=== PATIENT | male | born 1965 | race African-American/Black ===

== ENCOUNTER 2017-09-26 09:45 | Emergency (ER) | payer SELFPAY ==
[2017-09-26] MEDS ORDERED: Lidocaine 1% PF 5 ML VIAL ONE (10:30)
[2017-09-26] MEDS ORDERED: Azithromycin 250 MG TAB ONE (10:30)
[2017-09-26] MEDS ORDERED: Ketorolac Tromethamine 30 MG/ML VIAL ONE (10:30)
[2017-09-26] MEDS ORDERED: cefTRIAXone\\ROCEPHIN 250 MG VIAL ONE (10:30)
[2017-09-26 10:47] LABS: Bilirubin Negative (Negative); Blood, Urine Negative (Negative); Clarity CLEAR (Clear); Glucose, Urine (Dipstick) >=1000 mg/dL (Negative); Leukocyte Negative (Negative); Nitrite Negative (Negative); Protein, Urine (Dipstick) Negative (Neg-Trace); Specific Gravity, Urine 1.037 (1.002-1.036); Urobilinogen 0.2 mg/dL (0.2-1.0)
[2017-09-28 22:40] LABS: Chlamydia by PCR Not Detected (NotDetected); GC by PCR Not Detected (NotDetected)
== END 2017-09-26 11:40 | disposition home or self-care (01) ==
LOC: ERS 09:45
DX: Z20.2 Contact with and (suspected) exposure to infections with a predominantly sexual mode of transmission (principal); R30.0 Dysuria; M25.551 Pain in right hip; E11.9 Type 2 diabetes mellitus without complications; I10 Essential (primary) hypertension
CPT/HCPCS: 81003; 87491; 87591; 96372; J0696; J1885; J2001

== ENCOUNTER 2017-10-12 17:32 | Emergency (ER) | payer SELFPAY ==
[2017-10-12 19:03] LABS: Bilirubin Negative (Negative); Blood, Urine Negative (Negative); Clarity CLEAR (Clear); Glucose, Urine (Dipstick) >=1000 mg/dL (Negative); Leukocyte Negative (Negative); Nitrite Negative (Negative); Protein, Urine (Dipstick) Negative (Neg-Trace); Specific Gravity, Urine 1.036 (1.002-1.036); Urobilinogen 0.2 mg/dL (0.2-1.0); pH, Urine 5.5 (5.0-9.0)
[2017-10-12 20:01] LABS: Hemoglobin 15.9 g/dL (14.0-18.0); Mean Corpuscular HGB CONC 35.9 g/dL (32.0-36.0); Mean Corpuscular Hemoglobin 30.5 pg (27.0-31.0); Mean Corpuscular Volume 84.9 fL (78.0-98.0); Mean Platelet Volume 7.5 fL (7.4-10.4); Platelet Count 295 thou/uL (130-400); RBC Distribution Width 11.7 % (11.5-14.5); Red Blood Cell (RBC) Count 5.23 mill/uL (4.70-6.10); White Blood Cell (WBC) Count 5.4 thou/uL (4.8-10.8)
[2017-10-12 20:20] LABS: Band 1 % (5-11); Eosinophils 3 % (0-10); Lymphocytes 54 % (21-51); MDiff Complete? YES; Monocytes 1 % (0-10); Neutrophil 39 % (42-75); PLT Morphology Comment Appears Adequate; RBC Morphology Normal; Reactive Lymphocytes 2 % (0-10)
[2017-10-12 20:21] LABS: ALT (SGPT) 36 U/L (8-55); AST (SGOT) 27 U/L (5-34); Albumin 4.6 g/dL (3.5-5.0); Alkaline Phosphatase 145 U/L (40-150); Anion Gap 15 mmol/L (10-20); BUN (Urea Nitrogen) 13 mg/dL (8.4-25.7); Calc. Creatinine Clearance 0 mL/min (70-130); Calcium 9.4 mg/dL (7.8-10.44); Carbon Dioxide 22 mmol/L (22-29); Chloride 96 mmol/L (98-107); Estimated GFR-MDRD 53; Globulin 3.6 g/dL (2.4-3.5); Potassium 3.6 mmol/L (3.5-5.1); Protein, Total 8.2 g/dL (6.0-8.3)
[2017-10-12 20:27] LABS: Glucose 584 mg/dL (70-105); Sodium 129 mmol/L (136-145)
[2017-10-12 20:29] LABS: Base Excess-Venous 1.6 mmol/L (0 (+/- 2.5)); Bicarbonate (HCO3v) 24.9 mmol/L (1.0-85.0); CO2 Tension (PvCO2) 34.3 mmHg (41.0-51.0); Calcium, Ionized 0.99 mmol/L (1.12-1.32); Hemoglobin - Calc 15.2 g/dL (12.0-18.0); O2 Tension (PvO2) 42.4 mmHg (35.0-45.0); Potassium 3.8 mmol/L (3.4-4.7); T. Carbon Dioxide 25.9 mmol/L (1.0-85.0); pH (Venous) 7.468 (7.35-7.45); vO2 Saturation-calc 81.4 % (94-98)
== END 2017-10-12 22:31 | disposition home or self-care (01) ==
LOC: ERS 17:32
DX: E11.65 Type 2 diabetes mellitus with hyperglycemia (principal); N48.1 Balanitis; E11.9 Type 2 diabetes mellitus without complications; I10 Essential (primary) hypertension
CPT/HCPCS: 36415; 36416; 80053; 81003; 82330; 82803; 85025; 96360; 96361

== ENCOUNTER 2018-12-24 11:19 | Emergency (ER) | payer SELFPAY ==
[2018-12-24] MEDS ORDERED: Cyclobenzaprine 10 MG TAB ONE (11:44)
--- NOTE | 2018-12-24 13:30 | CT ---
CT LUMBAR SPINE WITHOUT CONTRAST: CT PELVIS WITHOUT CONTRAST: HISTORY: Fall. Low back pain. FINDINGS: There are postop changes of posterior spinal fusion with bilateral pedicle screws at the L4 and L5 le vels, in good position and alignment. There is large bridging heterotopic bone from L2 to S1 on the l eft and at the L4-L5 level on the right. No acute fracture or subluxation is seen in the lumbar spine . There are degenerative changes in the SI joints bilaterally. No fracture or dislocation is seen in th e pelvis or hips on either side. IMPRESSION: No acute process. POS: [facility]
== END 2018-12-24 13:40 | disposition home or self-care (01) ==
LOC: ERS 11:19
DX: S39.012A Strain of muscle, fascia and tendon of lower back, initial encounter (principal); M25.552 Pain in left hip; E11.9 Type 2 diabetes mellitus without complications; I10 Essential (primary) hypertension; Z79.899 Other long term (current) drug therapy; Z79.84 Long term (current) use of oral hypoglycemic drugs; W18.30XA Fall on same level, unspecified, initial encounter
CPT/HCPCS: 72131; 72192

== ENCOUNTER 2019-05-10 07:56 | Outpatient (CLI) | payer OTHER ==
--- NOTE | 2019-05-10 10:42 | MRI ---
MR the lumbar spine with and without contrast: 05/10/2019 History: Chronic back pain with left lower extremity radiculopathy, history of back surgery COMPARISON: None. TECHNIQUE: Multiplanar multisequence MR images were obtained of lumbar spine with and without IV cont rast FINDINGS: On the basis of 5 lumbar type vertebral bodies, conus medullaris terminates at theL1 level. Posterior fusion hardware at the L4-5 level noted. Associated hardware artifact limits assessment of the central canal and neural foramina at L4-5 and L5-S1. Sagittal STIR imaging demonstrates no focal area of osseous marrow edema. T12-L1:Intervertebral disc height and signal intensity is within normal limits. Mild bilateral facet hypertrophy. No significant central canal or neural foraminal stenosis. L1-2:There is anterolisthesis at L1-2 measuring approximately 7 mm. There is disc space narrowing wit h disc desiccation. Prominent bilateral facet hypertrophy. There is mild/moderate right neural foraminal stenosis, severe central canal stenosis, and severe left neural foraminal stenosis. L2-3:Intervertebral disc height and signal intensity appears within normal limits. Mild bilateral fac et hypertrophy. No central canal or neural foraminal stenosis. L3-4:Intervertebral disc height and signal intensity appears grossly unremarkable. Mild bilateral fac et hypertrophy with mild bilateral neural foraminal stenosis. No significant central canal stenosis. L4-5:Intervertebral disc height and signal intensity is within normal limits. Bilateral facet hypertr ophy noted. No significant central canal stenosis. The patient appears status post bilateral laminectomy. Probable moderate left and mild right neural foraminal stenosis. Evaluation for neural f oraminal stenosis is limited on the basis of hardware artifact. L5-S1:Facet hypertrophy noted on the left with mild left neural foraminal stenosis. No significant ce ntral canal or right neural foraminal stenosis. Image retroperitoneal structures demonstrateno acute findings.. The postcontrast imaging demonstrates no abnormal enhancement involving the contents of the thecal sa c, the imaged osseous structures, or the intervertebral discs. IMPRESSION: Postoperative and degenerative changes as described above, most significant at the L1-2 level as deta iled above.
== END 2019-05-10 07:57 | disposition home or self-care (01) ==
LOC: SCSMRI 07:56
PROVIDERS: ATTEND Neurological Surgery
DX: M48.062 Spinal stenosis, lumbar region with neurogenic claudication (principal); M47.816 Spondylosis without myelopathy or radiculopathy, lumbar region; Z98.1 Arthrodesis status
CPT/HCPCS: 72158

== ENCOUNTER 2019-07-01 09:59 | Outpatient (CLI) | payer OTHER ==
--- NOTE | 2019-07-01 15:04 | MRI ---
MRI CERVICAL SPINE WITHOUT CONTRAST: 07/01/19 INDICATIONS: Spondylosis cervical spine. Chronic neck pain with radiation to both upper extremities. No comparison. FINDINGS: Cervical vertebral maintain height and alignment. Mild anterior wedging at C4, C5 and C6 appears size mixer hardy and degenerative. There are anterior osteophytes at these levels. The disc spaces are preserved. No evidence of vertebral body edema. At C2-3, mild disc bulge without cord impingement. No central canal stenosis. At C3-4, posterior disc osteophyte compresses the cord producing flattening of the cord. Bilateral fo raminal stenosis due to facet and uncinate hypertrophy. At C4-5, posterior disc bulge and spondylosis abuts and mildly flattens the anterior cord. Right fora dolly stenosis. At C5-6, posterior disc bulge and spondylosis abuts the mildly impinges on the anterior cord. Mild ri ght foraminal stenosis due to facet and uncinate hypertrophy. At C6-7, disc osteophyte complex centrally and to the left abuts the anterior cord on the left and a ppears to displace the traversing and exiting left nerve root at this level. At C7-T1, asymmetric disc osteophyte complex with uncinate hypertrophy on the right produces right fo raminal stenosis. No evidence of cord edema or myelomalacia. IMPRESSION: Disc bulge and spondylolytic changes at multiple levels produce cord impingement as described above. Cord compression is most pronounced at C3-4. See description at each level above. POS: [facility]
== END 2019-07-01 10:00 | disposition home or self-care (01) ==
LOC: SCSMRI 09:59
PROVIDERS: ATTEND Neurological Surgery
DX: M47.12 Other spondylosis with myelopathy, cervical region (principal); M50.01 Cervical disc disorder with myelopathy, high cervical region; M25.78 Osteophyte, vertebrae; M48.02 Spinal stenosis, cervical region; M89.38 Hypertrophy of bone, other site; M48.03 Spinal stenosis, cervicothoracic region
CPT/HCPCS: 72141

== ENCOUNTER 2019-07-08 06:08 | Outpatient (CLI) | payer OTHER ==
[2019-07-08 10:24] LABS: Hemoglobin 14.3 g/dL (14.0-18.0); Mean Corpuscular HGB CONC 33.5 g/dL (32.0-36.0); Mean Corpuscular Volume 89.3 fL (78.0-98.0); Platelet Count 348 thou/uL (130-400); RBC Distribution Width 11.9 % (11.5-14.5); Red Blood Cell (RBC) Count 4.76 mill/uL (4.70-6.10); White Blood Cell (WBC) Count 5.7 thou/uL (4.8-10.8)
[2019-07-08 10:54] LABS: Anion Gap 15 mmol/L (10-20); BUN (Urea Nitrogen) 16 mg/dL (8.4-25.7); Calc. Creatinine Clearance 0 mL/min (70-130); Calcium 9.3 mg/dL (7.8-10.44); Carbon Dioxide 24 mmol/L (22-29); Chloride 105 mmol/L (98-107); Estimated GFR-MDRD 79; Glucose 105 mg/dL (70-105); Potassium 3.5 mmol/L (3.5-5.1); Sodium 140 mmol/L (136-145)
[2019-07-08 18:20] LABS: SARS-CoV-2 MS2 Positive; SARS-CoV-2 N Gene Negative; SARS-CoV-2 S Gene Negative; SARS-CoV-2 orf1ab Negative
--- NOTE | 2019-07-10 16:35 | EKG ---
Test Reason : Blood Pressure : / mmHG Vent. Rate : 091 BPM Atrial Rate : 091 BPM P-R Int : 144 ms QRS Dur : 092 ms QT Int : 376 ms P-R-T Axes : 064 048 -22 degrees QTc Int : 462 ms Normal sinus rhythm T wave abnormality, consider inferior ischemia Prolonged QT Abnormal ECG No previous ECGs available Confirmed by SHERI BARRETO ([id number]) on 07/10/2019 4:34:49 PM Referred By: ABDOULAYE Confirmed By:SHERI BARRETO
== END 2019-07-08 06:09 | disposition home or self-care (01) ==
LOC: LABBT 06:08
PROVIDERS: ATTEND Neurological Surgery
DX: Z01.818 Encounter for other preprocedural examination (principal); Z11.59 Encounter for screening for other viral diseases; M48.062 Spinal stenosis, lumbar region with neurogenic claudication
CPT/HCPCS: 80048; 85027; 87635; 93005; 93010; U0003

== ENCOUNTER 2019-07-13 06:33 | Day surgery (SDC) | payer OTHER ==
[2019-07-08 09:32] VITALS: BMI 37.3
[2019-07-13] MEDS ORDERED: Fentanyl 100 MCG/2 ML VIAL ONE ×5 (09:50→13:23)
[2019-07-13] MEDS ORDERED: SUGAMMADEX SODIUM 200 MG/2 ML VIAL ONE ×2 (11:18→11:37)
[2019-07-13] MEDS ORDERED: Ondansetron PF 4 MG/2 ML Vial ONE (11:57)
[2019-07-13] MEDS ORDERED: Dexamethasone 20 MG/5 ML VIAL ONE (11:57)
[2019-07-13] MEDS ORDERED: PHENYLEPHRINE-NS 100 MCG/ML 10 ML SYRINGE ONE (11:57)
[2019-07-13] MEDS ORDERED: PROPOFOL 200 MG/20 ML VIAL ONE (11:57)
[2019-07-13] MEDS ORDERED: Lidocaine 1% PF 5 ML VIAL ONE (11:57)
[2019-07-13] MEDS ORDERED: Rocuronium Bromide 10 MG/ML (10ML VIAL) ONE (11:57)
--- NOTE | 2019-07-13 12:54 | OP ---
DATE OF PROCEDURE: 07/13/2019 AVIATION SAFETY EQUIPMENT TECHNICIAN: Frida Rosario PA-C PROCEDURE PERFORMED: Anterior cervical diskectomy C3-4, interbody arthrodesis, intervertebral biomechanical device, local morselized autograft, demineralized bone matrix, anterior titanium instrumentation C3-4. DESCRIPTION OF PROCEDURE: The patient was brought to the operating room and intubated. He was positioned supine with the head in modest extension on a gel-filled donut. An incision was made in the right precervical area and dissected medial to the sternocleidomastoid muscle, identified the anterior cervical spinal, and the level was confirmed by x-ray. We placed distraction across the C3-4, removed the intervertebral disk, and using operative microscope and microdissection techniques, completely decompressed the intervertebral discs down beneath the posterior longitudinal ligament to the level of the dura. A complete decompression of the spinal cord was achieved. An anterior plate was then brought into the field and secured at C3 and C4 using two 14-mm screws at each level. The wound was then extensively irrigated. MAC hemostasis was secured. The wound was closed in anatomic layers. Job ID: [id number]
[2019-07-13] MEDS ORDERED: Tamsulosin HCl 0.4 MG CAP ONE (13:54)
[2019-07-13] MEDS ORDERED: HYDROcodone/Acetaminophen 5/325 mg Tablet ONE (14:37)
== END 2019-07-13 15:45 | disposition home or self-care (01) ==
LOC: SDC 06:33
PROVIDERS: ATTEND Neurological Surgery
PROC: 0RT30ZZ Resection of Cervical Vertebral Disc, Open Approach (ICD-10-PCS; principal; 2019-07-13)
PROC: 0RG10A0 Fusion of Cervical Vertebral Joint with Interbody Fusion Device, Anterior Approach, Anterior Column, Open Approach (ICD-10-PCS; principal; 2019-07-13)
DX: M47.12 Other spondylosis with myelopathy, cervical region (principal); M48.02 Spinal stenosis, cervical region; E11.9 Type 2 diabetes mellitus without complications; I10 Essential (primary) hypertension; Z79.84 Long term (current) use of oral hypoglycemic drugs; Z79.899 Other long term (current) drug therapy
CPT/HCPCS: 76000; C1713; C1776; J0690; J1100; J2001; J2405; J2704; J3010

== ENCOUNTER 2019-08-01 08:56 | Emergency (ER) | payer OTHER ==
[2019-08-01] MEDS ORDERED: Iopamidol-370 76% 500 ML 1 ML ONE (09:47)
[2019-08-01 10:53] LABS: Bacteria/HPF None Seen HPF (None Seen); Bilirubin Negative (Negative); Blood, Urine Negative (Negative); Clarity Clear (Clear); Glucose, Urine (Dipstick) Normal (Negative); Leukocyte 250 Leu/uL (Negative); Nitrite Negative (Negative); Protein, Urine (Dipstick) 30 mg/dL (Neg-Trace); RBC/HPF 0-3 HPF (0-3); Squamous Epithelial 0-3 HPF (0-3)
[2019-08-01 11:42] LABS: #Basophils 0.1 thou/uL (0.0-0.2); #Eosinphils 0.1 thou/uL (0.0-0.7); #Lymphocytes 2.3 thou/uL (1.20-3.40); #Monocytes 1.2 thou/uL (0.11-0.59); #Neutrophils 10.2 thou/uL (1.40-6.50); %Basophils 0.4 % (0.0-1.0); %Eosinophils 0.7 % (0.0-10.0); %Lymphocytes 16.5 % (21.0-51.0); %Monocytes 8.5 % (0.0-10.0); %Neutrophils 73.8 % (42.0-75.0); Hemoglobin 13.8 g/dL (14.0-18.0); Mean Corpuscular HGB CONC 32.7 g/dL (32.0-36.0); Mean Corpuscular Hemoglobin 29.7 pg (27.0-31.0); Mean Corpuscular Volume 90.8 fL (78.0-98.0); Mean Platelet Volume 7.1 fL (7.4-10.4); Platelet Count 351 thou/uL (130-400); RBC Distribution Width 11.7 % (11.5-14.5); Red Blood Cell (RBC) Count 4.66 mill/uL (4.70-6.10); White Blood Cell (WBC) Count 13.8 thou/uL (4.8-10.8)
--- NOTE | 2019-08-01 11:52 | CT ---
CT ABDOMEN AND PELVIS WITH IV CONTRAST 08/01/2019 CLINICAL INFORMATION: Difficulty urinating for past 2 days. COMPARISON: None. Technique: Multiple contiguous axial CT images are obtained through the abdomen and pelvis with IV contrast. Cor onal reformatted images are provided. FINDINGS: Lower Chest: Dependent bibasilar atelectasis. Vessels: Abdominal aorta is normal in caliber without evidence of an aortic dissection. Abdomen: Portal vein:Patent Gallbladder: Surgically absent. Liver: within normal limits. Spleen: within normal limits. Pancreas: within normal limits. Adrenals: within normal limits. Kidneys: within normal limits. Bowel: Colonic diverticulosis involving the descending colon. Loops of small bowel are normal in audra priscila. Appendix: The appendix is visualized and normal in caliber. Peritoneum: No ascites or free air; no fluid collection. Mesentery and Retroperitoneum: No enlarged mesenteric or retroperitoneal lymph nodes. Abdominal Wall: Small fat-containing umbilical hernia. Pelvis: Reproductive Organs: No pelvic masses. Pelvis within normal limits. Bladder: Enriquez catheter in urinary bladder which is decompressed. Bones: Extensive postoperative changes lumbar spine IMPRESSION: 1. No acute findings are seen in the abdomen or pelvis. 2. Kidneys demonstrate a normal CT appearance bilaterally without evidence of a renal mass or hydrone phrosis. 3. Enriquez catheter is present in a decompressed urinary bladder. 4. Colonic diverticulosis.
[2019-08-01 11:56] LABS: Albumin 4.3 g/dL (3.5-5.0)
[2019-08-01 11:57] LABS: Chloride 98 mmol/L (98-107); Potassium 3.7 mmol/L (3.5-5.1); Sodium 137 mmol/L (136-145)
[2019-08-01 11:58] LABS: Calcium 9.6 mg/dL (7.8-10.44); Glucose 107 mg/dL (70-105)
[2019-08-01 11:59] LABS: Protein, Total 8.3 g/dL (6.0-8.3)
[2019-08-01 12:00] LABS: Anion Gap 14 mmol/L (10-20); Bilirubin, Total 1.6 mg/dL (0.2-1.2); Carbon Dioxide 29 mmol/L (22-29)
[2019-08-01 12:01] LABS: Alkaline Phosphatase 151 U/L (40-110)
[2019-08-01 12:02] LABS: Calc. Creatinine Clearance 0 mL/min (70-130); Estimated GFR-MDRD 78
[2019-08-01 12:03] LABS: BUN (Urea Nitrogen) 12 mg/dL (8.4-25.7)
[2019-08-01 12:04] LABS: ALT (SGPT) 149 U/L (8-55); AST (SGOT) 28 U/L (5-34)
== END 2019-08-01 13:00 | disposition home or self-care (01) ==
LOC: ERS 08:56
DX: N39.0 Urinary tract infection, site not specified (principal); E11.9 Type 2 diabetes mellitus without complications; I10 Essential (primary) hypertension; J45.909 Unspecified asthma, uncomplicated
CPT/HCPCS: 51702; 74177; 80053; 81003; 81015; 83605; 85025; 87077; 87086; 87186; Q9967

== ENCOUNTER 2019-08-03 18:47 | Emergency (ER) | payer OTHER, SELFPAY ==
[2019-08-03] MEDS ORDERED: Morphine 4 MG/ML VIAL ONE (19:33)
[2019-08-03] MEDS ORDERED: Ketorolac Tromethamine 30 MG/ML VIAL ONE (19:34)
[2019-08-03 19:44] LABS: #Eosinphils 0.1 thou/uL (0.0-0.7); #Lymphocytes 1.5 thou/uL (1.20-3.40); #Monocytes 0.7 thou/uL (0.11-0.59); #Neutrophils 5.3 thou/uL (1.40-6.50); %Basophils 0.3 % (0.0-1.0); %Eosinophils 0.7 % (0.0-10.0); %Lymphocytes 19.8 % (21.0-51.0); %Neutrophils 70.1 % (42.0-75.0); Hemoglobin 14.8 g/dL (14.0-18.0); Mean Corpuscular HGB CONC 33.9 g/dL (32.0-36.0); Mean Corpuscular Hemoglobin 30.1 pg (27.0-31.0); Mean Corpuscular Volume 88.8 fL (78.0-98.0); Mean Platelet Volume 7.3 fL (7.4-10.4); Platelet Count 461 thou/uL (130-400); RBC Distribution Width 11.7 % (11.5-14.5); Red Blood Cell (RBC) Count 4.91 mill/uL (4.70-6.10); White Blood Cell (WBC) Count 7.5 thou/uL (4.8-10.8)
--- NOTE | 2019-08-03 20:40 | ULT ---
ULTRASOUND GALLBLADDER RIGHT UPPER QUADRANT: 08/03/19 HISTORY: Epigastric pain. COMPARISON: Reference is made to a CT two days prior. FINDINGS: Real time valdez scale and color evaluation of the right upper quadrant of the abdomen was performed. Mild diffuse increased hepatic echotexture. No hepatic mass. Liver measures 13.4 cm in length. Prior cholecystectomy. Common bile duct is normal measuring 4 mm. Portal vein patent. Antegrade flow. Right kidney measures 9.9 x 4.7 x 5.3 cm without mass, hydronephrosis or abnormal calcifications. Pancreas is not well seen. IMPRESSION: 1. Diffuse hepatic steatosis. 2. No intrahepatic biliary dilatation. POS: [facility]
--- NOTE | 2019-08-03 20:41 | RAD ---
CHEST ONE VIEW: 08/03/19 HISTORY: Epigastric pain. COMPARISON: None. FINDINGS: The lungs are clear. No pneumothorax or effusion. Cardiac silhouette and mediastinal contours are wit hin normal limits. Advanced degenerative changes both acromioclavicular joints. IMPRESSION: No acute intrathoracic abnormality. POS: [facility]
[2019-08-03 20:55] LABS: ALT (SGPT) 79 U/L (8-55); AST (SGOT) 27 U/L (5-34); Albumin 4.1 g/dL (3.5-5.0); Alkaline Phosphatase 139 U/L (40-110); Anion Gap 14 mmol/L (10-20); BUN (Urea Nitrogen) 17 mg/dL (8.4-25.7); Bilirubin, Total 0.6 mg/dL (0.2-1.2); Calc. Creatinine Clearance 0 mL/min (70-130); Calcium 9.1 mg/dL (7.8-10.44); Carbon Dioxide 25 mmol/L (22-29); Chloride 102 mmol/L (98-107); Estimated GFR-MDRD 70; Globulin 3.7 g/dL (2.4-3.5); Glucose 131 mg/dL (70-105); Lipase 22 U/L (8-78); Potassium 3.6 mmol/L (3.5-5.1); Protein, Total 7.8 g/dL (6.0-8.3); Sodium 137 mmol/L (136-145)
--- NOTE | 2019-08-06 12:56 | EKG ---
Test Reason : EPIGASTRIC PAIN Blood Pressure : / mmHG Vent. Rate : 117 BPM Atrial Rate : 117 BPM P-R Int : 134 ms QRS Dur : 090 ms QT Int : 330 ms P-R-T Axes : 037 008 036 degrees QTc Int : 460 ms Sinus tachycardia Otherwise normal ECG Confirmed by TERRANCE WHITE ([id number]), web editor HUGO BARRIENTOS ([id number]) on 08/06/2019 12:55:49 PM Referred By: TEA Confirmed By:TERRANCE Clark
== END 2019-08-03 21:11 | disposition home or self-care (01) ==
LOC: ERS 18:47
DX: R10.13 Epigastric pain (principal); E11.9 Type 2 diabetes mellitus without complications; I10 Essential (primary) hypertension; J45.909 Unspecified asthma, uncomplicated
CPT/HCPCS: 36415; 71045; 76705; 80053; 83690; 84484; 85025; 93005; 96374; 96375; J1885; J2270

== ENCOUNTER 2019-09-29 06:24 | Outpatient (CLI) | payer OTHER ==
[2019-09-29 14:07] LABS: Hemoglobin 14.9 g/dL (14.0-18.0); Mean Corpuscular HGB CONC 33.8 g/dL (32.0-36.0); Mean Corpuscular Hemoglobin 29.9 pg (27.0-31.0); Mean Corpuscular Volume 88.6 fL (78.0-98.0); Mean Platelet Volume 7.7 fL (7.4-10.4); Platelet Count 373 thou/uL (130-400); RBC Distribution Width 12.3 % (11.5-14.5); Red Blood Cell (RBC) Count 4.99 mill/uL (4.70-6.10); White Blood Cell (WBC) Count 5.5 thou/uL (4.8-10.8)
[2019-09-29 14:15] LABS: Anion Gap 13 mmol/L (10-20); BUN (Urea Nitrogen) 11 mg/dL (8.4-25.7); Calc. Creatinine Clearance 0 mL/min (70-130); Calcium 9.8 mg/dL (7.8-10.44); Carbon Dioxide 28 mmol/L (22-29); Chloride 102 mmol/L (98-107); Estimated GFR-MDRD 85; Glucose 130 mg/dL (70-105); Potassium 3.6 mmol/L (3.5-5.1); Sodium 139 mmol/L (136-145)
[2019-09-30 12:08] LABS: SARS-CoV-2 MS2 Positive; SARS-CoV-2 N Gene Negative; SARS-CoV-2 S Gene Negative; SARS-CoV-2 by NAA Not Detected (NotDetected); SARS-CoV-2 orf1ab Negative
== END 2019-09-29 06:25 | disposition home or self-care (01) ==
LOC: LABBT 06:24
PROVIDERS: ATTEND Neurological Surgery
DX: Z01.818 Encounter for other preprocedural examination (principal); Z11.59 Encounter for screening for other viral diseases; M48.062 Spinal stenosis, lumbar region with neurogenic claudication
CPT/HCPCS: 80048; 85027; 87635; 93005; 93010; U0003

== ENCOUNTER 2019-10-03 07:49 | Observation (INO) | payer OTHER ==
[2019-09-30 12:06] VITALS: BMI 36.6
[2019-10-03] MEDS ORDERED: Dexamethasone 20 MG/5 ML VIAL ONE (10:07)
[2019-10-03] MEDS ORDERED: EPHEDRINE 25 MG/5 ML SYRINGE ONE (10:07)
[2019-10-03] MEDS ORDERED: Rocuronium Bromide 10 MG/ML (10ML VIAL) ONE (10:07)
[2019-10-03] MEDS ORDERED: Ondansetron PF 4 MG/2 ML Vial ONE (10:07)
[2019-10-03] MEDS ORDERED: Lidocaine 1% PF 5 ML VIAL ONE (10:07)
[2019-10-03] MEDS ORDERED: Glycopyrrolate 0.2 MG/ML 5 ML SYRINGE ONE (10:07)
[2019-10-03] MEDS ORDERED: PROPOFOL 200 MG/20 ML VIAL ONE (10:07)
[2019-10-03] MEDS ORDERED: Fentanyl 100 MCG/2 ML VIAL ONE ×5 (10:57→14:20)
[2019-10-03] MEDS ORDERED: Tamsulosin HCl 0.4 MG CAP ONE (13:10)
[2019-10-03] MEDS ORDERED: HYDROmorphone 2 MG/ML VIAL ONE (13:47)
[2019-10-03] MEDS ORDERED: Morphine 4 MG/ML VIAL SLOW IVP PRN (14:14)
[2019-10-03] MEDS ORDERED: Mag-Al 1200 mg/1200 mg/30 ML UDCUP PO PRN (14:14)
[2019-10-03] MEDS ORDERED: Morphine 2 MG/ML VIAL SLOW IVP PRN (14:14)
[2019-10-03] MEDS ORDERED: diphenhydrAMINE 25 MG CAP PO PRN (14:14)
[2019-10-03] MEDS ORDERED: Milk Of Magnesia 30 ML UDCUP PO PRN (14:14)
[2019-10-03] MEDS ORDERED: diphenhydrAMINE 50 MG/ML VIAL IVP PRN (14:14)
[2019-10-03] MEDS ORDERED: traMADol HCl 50 MG TAB PO PRN (14:14)
[2019-10-03] MEDS ORDERED: tiZANidine HCl 4 MG TAB PO PRN (14:14)
[2019-10-03] MEDS ORDERED: Acetaminophen/Codeine 30-300mg Tablet PO PRN (14:14)
[2019-10-03] MEDS ORDERED: Ondansetron PF 4 MG/2 ML Vial IM PRN (14:15)
[2019-10-03] MEDS ORDERED: Ketorolac Tromethamine 30 MG/ML VIAL ONE (14:55)
--- NOTE | 2019-10-03 15:16 | OP ---
DATE OF PROCEDURE: 10/03/2019 EMAIL MARKETING MANAGER: Frida Rosario PA-C PROCEDURE PERFORMED: L1-L2 laminectomy. DESCRIPTION OF PROCEDURE: The patient was brought to the operating room and intubated. He was rolled in prone position on gel-filled chest rolls. An incision was made exposing L1 and L2, and the level was confirmed by x-ray. We performed complete L2 and inferior L4 laminectomies, completely decompressing the neural elements. The wound was then extensively irrigated and MAC hemostasis was secured. Vancomycin powder was applied and the wound was closed in anatomic layers. Job ID: [id number]
[2019-10-03] MEDS: Sodium Chloride 0.9% 1,000 ML IV SCH (16:01)
[2019-10-03] MEDS: Acetaminophen/Codeine 30-300mg Tablet PO PRN (18:22)
[2019-10-03] MEDS: traMADol HCl 50 MG TAB PO PRN (19:33)
[2019-10-03] MEDS ORDERED: Atorvastatin Calcium 20 MG TAB PO SCH (21:00)
[2019-10-04] MEDS: traMADol HCl 50 MG TAB PO PRN (02:28)
[2019-10-04] MEDS: Sodium Chloride 0.9% 1,000 ML IV SCH (03:17)
[2019-10-04] MEDS ORDERED: Tamsulosin HCl 0.4 MG CAP PO SCH (06:00)
[2019-10-04 07:12] VITALS: BP 141/93; TEMP 97.7
[2019-10-04] MEDS ORDERED: metFORMIN 500 MG TAB PO SCH (08:00)
[2019-10-04] MEDS: Acetaminophen/Codeine 30-300mg Tablet PO PRN (08:04)
[2019-10-04] MEDS ORDERED: Amlodipine 10 MG TAB PO SCH (09:00)
[2019-10-04] MEDS ORDERED: Hydrochlorothiazide 25 MG TAB PO SCH (09:00)
[2019-10-04] MEDS ORDERED: Finasteride 5 MG TAB PO SCH (09:00)
--- NOTE | 2019-10-04 13:45 | DIS ---
DATE OF ADMISSION: 10/03/2019 DATE OF DISCHARGE: 10/04/2019 HOSPITAL COURSE: The patient is a 54-year-old male recently evaluated in our office for claudicatory leg pain, found to have severe stenosis at L1 and L2. He underwent L1-L2 laminectomy on 10/03/2019. Following the surgery, he was transitioned to the Med/Surg floor, where his pain has been well controlled with p.o. medications, he is tolerating regular diet, and he is voiding appropriately. He is not having any incisional issues. On exam this morning, he is awake, alert, he is up in the bathroom, brushing his teeth and appears to be in no acute distress. He is moving his extremities without any difficulty and has a steady gait. Overall, the patient is doing quite well. We will plan to dismiss the patient to home. I have discussed home care and precautions. He has script for Tylenol No. 3 already at home. I have checked COMPUTER GAME DESIGNER AWARxE prior to discharge. Job ID: [id number]
== END 2019-10-04 10:25 | disposition home or self-care (01) ==
LOC: SDC 07:49 → SURG A 15:59
PROVIDERS: ADMIT Neurological Surgery; ATTEND Neurological Surgery
PROC: 01NB0ZZ Release Lumbar Nerve, Open Approach (ICD-10-PCS; principal; 2019-10-03)
DX: M48.062 Spinal stenosis, lumbar region with neurogenic claudication (principal); M47.12 Other spondylosis with myelopathy, cervical region; I10 Essential (primary) hypertension; E78.5 Hyperlipidemia, unspecified; E11.9 Type 2 diabetes mellitus without complications; N40.0 Benign prostatic hyperplasia without lower urinary tract symptoms; Z79.84 Long term (current) use of oral hypoglycemic drugs; Z79.899 Other long term (current) drug therapy; Z98.1 Arthrodesis status
CPT/HCPCS: 36416; 76000; 96361; 96374; G0378; J0690; J1100; J1170; J1885; J2270; J2405; J2704; J3010; J3370

== ENCOUNTER 2021-08-18 03:05 | Emergency (ER) | payer MEDICAID, OTHER ==
[2021-08-18] MEDS ORDERED: methylPREDNISolone Sod Succ/PF 125 MG/2 ML VIAL ONE (03:28)
[2021-08-18] MEDS ORDERED: Famotidine/PF 20 mg/2ml Vial ONE (03:28)
[2021-08-18] MEDS ORDERED: Tranexamic Acid 1,000 MG/10 ML VIAL ONE (05:52)
== END 2021-08-18 06:55 | disposition home or self-care (01) ==
LOC: ERS 03:05
DX: T78.3XXA Angioneurotic edema, initial encounter (principal); E11.9 Type 2 diabetes mellitus without complications; I10 Essential (primary) hypertension; J45.909 Unspecified asthma, uncomplicated
CPT/HCPCS: 96374; 96375; J2930; S0028

== ENCOUNTER 2021-09-04 07:38 | Outpatient (CLI) | payer MEDICARE, OTHER | END 2021-09-04 07:39 | disposition home or self-care (01) | LOC: TBSIIMAG 07:38 | PROVIDERS: ATTEND Physician Assistant | DX: M51.36 Other intervertebral disc degeneration, lumbar region (principal); M47.22 Other spondylosis with radiculopathy, cervical region; M25.78 Osteophyte, vertebrae; M47.816 Spondylosis without myelopathy or radiculopathy, lumbar region; M48.02 Spinal stenosis, cervical region; Z98.890 Other specified postprocedural states | CPT/HCPCS: 72040; 72100; 72141; 72148 ==

== ENCOUNTER 2021-09-05 11:12 | Outpatient (CLI) | payer MEDICARE, OTHER ==
[2021-09-05 12:44] LABS: Hemoglobin 13.3 g/dL (13.5-17.5); Mean Corpuscular HGB CONC 33.6 g/dL (32.0-36.0); Mean Corpuscular Hemoglobin 28.7 pg (27.0-33.0); Mean Corpuscular Volume 85.3 fl (81.2-95.1); Mean Platelet Volume 9.9 fl (7.4-10.4); Platelet Count 338 10x3/uL (150-450); RBC Distribution Width 13.5 % (11.5-14.5); Red Blood Cell (RBC) Count 4.64 10x6/uL (4.32-5.72); White Blood Cell (WBC) Count 6.8 10x3/uL (3.5-10.5)
[2021-09-05 13:12] LABS: Anion Gap 16 mmol/L (10-20); BUN (Urea Nitrogen) 20 mg/dL (8.4-25.7); Calc. Creatinine Clearance 0 mL/min (70-130); Calcium 9.7 mg/dL (7.8-10.44); Carbon Dioxide 27 mmol/L (22-29); Chloride 103 mmol/L (98-107); Estimated GFR 70; Glucose 203 mg/dL (70-105); Potassium 4.2 mmol/L (3.5-5.1); Sodium 142 mmol/L (136-145)
== END 2021-09-05 11:13 | disposition home or self-care (01) ==
LOC: LABBT 11:12
PROVIDERS: ATTEND Urology
DX: Z01.818 Encounter for other preprocedural examination (principal); N40.1 Benign prostatic hyperplasia with lower urinary tract symptoms; Z20.822 Contact with and (suspected) exposure to COVID-19
CPT/HCPCS: 80048; 85027; 87811; 93005; 93010

== ENCOUNTER 2021-09-10 08:01 | Observation (INO) | payer OTHER ==
[2021-09-09 11:49] VITALS: BMI 37.3
[2021-09-10] MEDS ORDERED: Fentanyl 100 MCG/2 ML VIAL ONE ×4 (11:27→15:36)
[2021-09-10] MEDS ORDERED: Levofloxacin 500 mg/D5W 100 ml Premix Bag ONE (11:43)
[2021-09-10] MEDS ORDERED: Lidocaine 1% PF 5 ML VIAL ONE (11:48)
[2021-09-10] MEDS ORDERED: Ondansetron PF 4 MG/2 ML Vial ONE (11:48)
[2021-09-10] MEDS ORDERED: PROPOFOL 200 MG/20 ML VIAL ONE (11:48)
[2021-09-10] MEDS ORDERED: Succinylcholine 200 MG/10 ml SYRINGE FS ONE (11:48)
[2021-09-10] MEDS ORDERED: Dexamethasone 20 MG/5 ML VIAL ONE (11:48)
[2021-09-10] MEDS ORDERED: Ondansetron PF 4 MG/2 ML Vial IVP PRN (13:03)
[2021-09-10] MEDS ORDERED: Oxybutynin 5 MG TAB PO PRN (13:03)
[2021-09-10] MEDS ORDERED: Zolpidem Tartrate 5 MG TAB PO PRN (13:03)
[2021-09-10] MEDS ORDERED: hydrALAZINE 20 MG/ML VIAL SLOW IVP PRN (13:03)
[2021-09-10] MEDS ORDERED: HYDROcodone/Acetaminophen 5/325 mg Tablet PO PRN (13:03)
[2021-09-10] MEDS ORDERED: diphenhydrAMINE 25 MG CAP PO PRN (13:03)
[2021-09-10] MEDS ORDERED: Oxybutynin 5 MG TAB ONE (13:12)
[2021-09-10] MEDS ORDERED: Albuterol 200 PUFF (6.7GM INHALER) INH PRN (14:30)
[2021-09-10] MEDS ORDERED: Ketorolac Tromethamine 30 MG/ML VIAL ONE (17:56)
[2021-09-10] MEDS ORDERED: Hyoscyamine Sulfate SL 0.125 mg Tablet ONE (17:56)
[2021-09-10] MEDS: Ketorolac Tromethamine 30 MG/ML VIAL IVP SCH ×2 (18:04→23:19)
[2021-09-10] MEDS: Hyoscyamine Sulfate SL 0.125 mg Tablet SL SCH ×2 (18:04→23:19)
[2021-09-10] MEDS: metFORMIN 500 MG TAB PO SCH (18:19)
[2021-09-10] MEDS: Sodium Chloride 0.9% 1,000 ML IV SCH ×2 (19:32→21:00)
[2021-09-10] MEDS ORDERED: Atorvastatin Calcium 40 MG TAB PO SCH (21:00)
[2021-09-10] MEDS: Famotidine/PF 20 mg/2ml Vial SLOW IVP SCH (21:01)
[2021-09-10] MEDS: Docusate 100 MG CAP PO SCH (21:01)
[2021-09-11] MEDS: Hyoscyamine Sulfate SL 0.125 mg Tablet SL SCH ×2 (05:39→11:53)
[2021-09-11] MEDS: Ketorolac Tromethamine 30 MG/ML VIAL IVP SCH ×2 (05:39→11:53)
[2021-09-11] MEDS: Sodium Chloride 0.9% 1,000 ML IV SCH (05:40)
[2021-09-11] MEDS ORDERED: Amlodipine 10 MG TAB PO SCH (09:00)
[2021-09-11] MEDS: Famotidine/PF 20 mg/2ml Vial SLOW IVP SCH (09:10)
[2021-09-11] MEDS: metFORMIN 500 MG TAB PO SCH (09:10)
[2021-09-11] MEDS: Docusate 100 MG CAP PO SCH (09:11)
[2021-09-11 12:44] VITALS: BP 146/96; TEMP 98.2
== END 2021-09-11 13:00 | disposition home or self-care (01) ==
LOC: SDC 08:01 → SJJU 12:43
PROVIDERS: ADMIT Urology; ATTEND Urology
PROC: 0VT08ZZ Resection of Prostate, Via Natural or Artificial Opening Endoscopic (ICD-10-PCS; principal; 2021-09-10)
DX: N40.1 Benign prostatic hyperplasia with lower urinary tract symptoms (principal); N13.8 Other obstructive and reflux uropathy; I10 Essential (primary) hypertension; E11.9 Type 2 diabetes mellitus without complications; Z86.16 Personal history of COVID-19; Z86.14 Personal history of Methicillin resistant Staphylococcus aureus infection; Z79.84 Long term (current) use of oral hypoglycemic drugs; Z79.899 Other long term (current) drug therapy; Z98.1 Arthrodesis status
CPT/HCPCS: 52601; 82962 ×2; 96374; 96375; 96376; G0378 ×2; 36416; 88305; J1100; J1885; J1956; J2405; J2704; J3010; J7050; S0028

== ENCOUNTER 2021-09-16 08:37 | Emergency (ER) | payer OTHER ==
[2021-09-16 10:10] LABS: Bacteria/HPF None Seen HPF (None Seen); Bilirubin Negative (Negative); Blood, Urine 2+ (Negative); Clarity Clear (Clear); Glucose, Urine (Dipstick) Normal (Negative); Ketone, Urine Negative (Negative); Leukocyte 75 Leu/uL (Negative); Nitrite Negative (Negative); Protein, Urine (Dipstick) 30 mg/dL (Neg-Trace); RBC/HPF 21-50 HPF (0-3); Specific Gravity, Urine 1.018 (1.002-1.036); Squamous Epithelial 0-3 HPF (0-3); Urobilinogen Normal mg/dL (Less than 2)
[2021-09-16 10:12] LABS: #Basophils 0.1 thou/uL (0.0-0.2); #Eosinphils 0.4 thou/uL (0.0-0.7); #Lymphocytes 2.2 thou/uL (1.20-3.40); #Monocytes 0.4 thou/uL (0.11-0.59); #Neutrophils 3.6 thou/uL (1.40-6.50); %Basophils 0.9 % (0.0-1.0); %Eosinophils 5.4 % (0.0-10.0); %Lymphocytes 32.9 % (21.0-51.0); %Monocytes 6.4 % (0.0-10.0); %Neutrophils 54.4 % (42.0-75.0); Hemoglobin 13.7 g/dL (14.0-18.0); Mean Corpuscular Hemoglobin 29.9 pg (27.0-31.0); Mean Corpuscular Volume 93.5 fL (78.0-98.0); Mean Platelet Volume 6.9 fL (7.4-10.4); Platelet Count 411 thou/uL (130-400); RBC Distribution Width 12.5 % (11.5-14.5); Red Blood Cell (RBC) Count 4.57 mill/uL (4.70-6.10); White Blood Cell (WBC) Count 6.7 thou/uL (4.8-10.8)
[2021-09-16 10:28] LABS: Anion Gap 13 mmol/L (10-20); BUN (Urea Nitrogen) 14 mg/dL (8.4-25.7); Calc. Creatinine Clearance 0 mL/min (70-130); Calcium 9.6 mg/dL (7.8-10.44); Carbon Dioxide 25 mmol/L (22-29); Chloride 104 mmol/L (98-107); Estimated GFR 72; Glucose 96 mg/dL (70-105); Sodium 138 mmol/L (136-145)
== END 2021-09-16 10:17 | disposition home or self-care (01) ==
LOC: ERS 08:37
DX: N39.0 Urinary tract infection, site not specified (principal); I10 Essential (primary) hypertension; E11.9 Type 2 diabetes mellitus without complications
CPT/HCPCS: 36415; 80048; 81003; 81015; 85025; 87086; 99283

== ENCOUNTER 2021-11-20 10:03 | Outpatient (CLI) | payer OTHER, MEDICAID ==
[2021-11-20 12:06] LABS: Hemoglobin 13.7 g/dL (13.5-17.5); Mean Corpuscular HGB CONC 33.6 g/dL (32.0-36.0); Mean Corpuscular Hemoglobin 29.3 pg (27.0-33.0); Mean Corpuscular Volume 87.2 fl (81.2-95.1); Mean Platelet Volume 9.8 fl (7.4-10.4); Platelet Count 373 10x3/uL (150-450); RBC Distribution Width 13.1 % (11.5-14.5); Red Blood Cell (RBC) Count 4.68 10x6/uL (4.32-5.72); White Blood Cell (WBC) Count 6.7 10x3/uL (3.5-10.5)
[2021-11-20 12:58] LABS: Anion Gap 15 mmol/L (10-20); BUN (Urea Nitrogen) 16 mg/dL (8.4-25.7); Calc. Creatinine Clearance 0 mL/min (70-130); Calcium 9.4 mg/dL (7.8-10.44); Carbon Dioxide 26 mmol/L (22-29); Chloride 102 mmol/L (98-107); Estimated GFR 89; Glucose 119 mg/dL (70-105); Potassium 3.8 mmol/L (3.5-5.1); Sodium 139 mmol/L (136-145)
== END 2021-11-20 10:04 | disposition home or self-care (01) ==
LOC: LABBT 10:03
PROVIDERS: ATTEND Nurse Anesthetist, Certified Registered
DX: Z01.818 Encounter for other preprocedural examination (principal); Z20.822 Contact with and (suspected) exposure to COVID-19
CPT/HCPCS: 80048; 85027; 87811; 93005; 93010

== ENCOUNTER 2021-11-25 06:22 | Observation (INO) | payer OTHER, MEDICAID ==
[2021-11-21 14:00] VITALS: BMI 37.1
[2021-11-25] MEDS ORDERED: Dexmedetomidine 200 MCG/2 ML VIAL ONE (06:50)
[2021-11-25] MEDS ORDERED: fentaNYL Citrate/PF 100 MCG/2 ML SYRINGE ONE ×4 (06:50→12:01)
[2021-11-25] MEDS ORDERED: Milk Of Magnesia 30 ML UDCUP PO PRN (07:14)
[2021-11-25] MEDS ORDERED: Mag-Al 1200 mg/1200 mg/30 ML UDCUP PO PRN (07:14)
[2021-11-25] MEDS ORDERED: Ondansetron PF 4 MG/2 ML Vial IVP PRN (07:14)
[2021-11-25] MEDS ORDERED: Promethazine 25 MG TAB PO PRN (07:14)
[2021-11-25] MEDS ORDERED: Acetaminophen/Codeine 30-300mg Tablet PO PRN (07:14)
[2021-11-25] MEDS ORDERED: diphenhydrAMINE 25 MG CAP PO PRN (07:14)
[2021-11-25] MEDS ORDERED: Albuterol Sulfate 2.5 mg/3 ml Neb NEB PRN (07:18)
[2021-11-25] MEDS ORDERED: CEFAZOLIN 2 GM VIAL ONE (08:21)
[2021-11-25] MEDS ORDERED: Sodium Chloride 0.9% 100 ML ONE (08:21)
[2021-11-25] MEDS ORDERED: PROPOFOL 200 MG/20 ML VIAL ONE (08:29)
[2021-11-25] MEDS ORDERED: Rocuronium Bromide 10 MG/ML (10ML VIAL) ONE (08:29)
[2021-11-25] MEDS ORDERED: Dexamethasone 20 MG/5 ML VIAL ONE (08:29)
[2021-11-25] MEDS ORDERED: Ondansetron PF 4 MG/2 ML Vial ONE (08:29)
[2021-11-25] MEDS ORDERED: Lidocaine 1% MPF 2 ML VIAL ONE ×2 (08:29)
[2021-11-25] MEDS ORDERED: Glycopyrrolate 0.2 MG/ML 5 ML SYRINGE ONE (08:29)
[2021-11-25] MEDS ORDERED: NEOSTIGMINE 3 MG/3 ML SYR 3 MG/3 ML SYRINGE ONE (08:29)
[2021-11-25] MEDS ORDERED: HYDROmorphone 2 MG/ML VIAL SLOW IVP PRN (09:35)
[2021-11-25] MEDS ORDERED: PACU-Morphine 4MG/ML VIAL SLOW IVP PRN (09:35)
[2021-11-25] MEDS ORDERED: Promethazine HCl 25 MG/ML VIAL IM PRN (09:35)
[2021-11-25] MEDS ORDERED: Promethazine HCl 25 MG/ML VIAL IVPB PRN (09:35)
[2021-11-25] MEDS ORDERED: Morphine Sulfate 2 MG/ML SYRINGE SLOW IVP PRN (09:35)
[2021-11-25] MEDS ORDERED: Ondansetron HCl/PF 4 MG/2 ML Vial IVP PRN (09:35)
[2021-11-25] MEDS ORDERED: HYDROmorphone 0.5 MG/0.5 ML SYRINGE ONE (11:29)
[2021-11-25] MEDS: Sodium Chloride 0.9% 1,000 ML IV SCH ×2 (12:20→23:27)
[2021-11-25] MEDS ORDERED: CEFAZOLIN 2 GM in Sodium Chloride 0.9% 100 ML IVPB SCH (14:00)
[2021-11-25] MEDS ORDERED: Insulin Regular 300 UNITS/3 ML VIAL SC PRN (14:32)
[2021-11-25] MEDS ORDERED: Dextrose 5% in Water 1,000 ML IV PRN (14:32)
[2021-11-25] MEDS ORDERED: Dextrose 50% Abboject 50 ML SYRINGE SLOW IVP PRN (14:32)
[2021-11-25] MEDS: metFORMIN 500 MG TAB PO SCH ×2 (15:07→15:21)
[2021-11-25] MEDS: Amlodipine 10 MG TAB PO SCH (15:08)
[2021-11-25] MEDS: Hydrochlorothiazide 25 MG TAB PO SCH (15:08)
[2021-11-25] MEDS: Lisinopril 10 MG TAB PO SCH (15:08)
[2021-11-25] MEDS: Finasteride 5 MG TAB PO SCH (15:08)
[2021-11-25] MEDS: Acetaminophen/Codeine 30-300mg Tablet PO PRN ×2 (15:21→19:24)
[2021-11-25] MEDS: CEFAZOLIN 2 GM in Sodium Chloride 0.9% 100 ML IVPB SCH ×2 (15:21→21:31)
[2021-11-25 16:56] LABS: #Lymphocytes 0.9 thou/uL (1.20-3.40); #Neutrophils 7.7 thou/uL (1.40-6.50); %Eosinophils 0.1 % (0.0-10.0); %Lymphocytes 10.4 % (21.0-51.0); %Monocytes 0.3 % (0.0-10.0); %Neutrophils 89.2 % (42.0-75.0); Hemoglobin 13.8 g/dL (14.0-18.0); Mean Corpuscular HGB CONC 32.3 g/dL (32.0-36.0); Mean Corpuscular Hemoglobin 29.5 pg (27.0-31.0); Mean Corpuscular Volume 91.5 fL (78.0-98.0); Platelet Count 368 thou/uL (130-400); RBC Distribution Width 11.9 % (11.5-14.5); Red Blood Cell (RBC) Count 4.68 mill/uL (4.70-6.10); White Blood Cell (WBC) Count 8.6 thou/uL (4.8-10.8)
[2021-11-25 17:22] LABS: Anion Gap 15 mmol/L (10-20); BUN (Urea Nitrogen) 18 mg/dL (8.4-25.7); Calc. Creatinine Clearance 134 mL/min (70-130); Calcium 9.2 mg/dL (7.8-10.44); Carbon Dioxide 22 mmol/L (22-29); Chloride 105 mmol/L (98-107); Estimated GFR 86; Glucose 184 mg/dL (70-105); Potassium 3.8 mmol/L (3.5-5.1); Sodium 138 mmol/L (136-145)
[2021-11-25] MEDS: Insulin Regular 300 UNITS/3 ML VIAL SC PRN (17:41)
[2021-11-25] MEDS: Morphine 2 MG/ML VIAL SLOW IVP PRN (19:23)
[2021-11-25] MEDS: Cyclobenzaprine 10 MG TAB PO PRN (21:34)
[2021-11-26] MEDS: Acetaminophen/Codeine 30-300mg Tablet PO PRN ×2 (04:04→09:06)
[2021-11-26] MEDS: Morphine 2 MG/ML VIAL SLOW IVP PRN (04:05)
[2021-11-26] MEDS: CEFAZOLIN 2 GM in Sodium Chloride 0.9% 100 ML IVPB SCH (05:15)
[2021-11-26] MEDS: Cyclobenzaprine 10 MG TAB PO PRN (05:15)
[2021-11-26 05:35] LABS: #Lymphocytes 1.9 thou/uL (1.20-3.40); #Monocytes 0.8 thou/uL (0.11-0.59); #Neutrophils 10.4 thou/uL (1.40-6.50); %Basophils 0.1 % (0.0-1.0); %Eosinophils 0.1 % (0.0-10.0); %Lymphocytes 14.7 % (21.0-51.0); %Monocytes 6.1 % (0.0-10.0); %Neutrophils 79.1 % (42.0-75.0); Hemoglobin 12.7 g/dL (14.0-18.0); Mean Corpuscular HGB CONC 33.2 g/dL (32.0-36.0); Mean Corpuscular Hemoglobin 29.9 pg (27.0-31.0); Mean Corpuscular Volume 90.1 fL (78.0-98.0); Mean Platelet Volume 6.9 fL (7.4-10.4); Platelet Count 353 thou/uL (130-400); RBC Distribution Width 11.8 % (11.5-14.5); Red Blood Cell (RBC) Count 4.25 mill/uL (4.70-6.10); White Blood Cell (WBC) Count 13.2 thou/uL (4.8-10.8)
[2021-11-26 05:58] LABS: Anion Gap 11 mmol/L (10-20); BUN (Urea Nitrogen) 14 mg/dL (8.4-25.7); Calc. Creatinine Clearance 156 mL/min (70-130); Calcium 8.9 mg/dL (7.8-10.44); Carbon Dioxide 24 mmol/L (22-29); Chloride 105 mmol/L (98-107); Estimated GFR 101; Glucose 170 mg/dL (70-105); Potassium 3.7 mmol/L (3.5-5.1); Sodium 136 mmol/L (136-145)
[2021-11-26] MEDS ORDERED: Tamsulosin HCl 0.4 MG CAP PO SCH (06:00)
[2021-11-26 08:31] VITALS: TEMP 98.2
[2021-11-26] MEDS: metFORMIN 500 MG TAB PO SCH (09:07)
[2021-11-26] MEDS: Finasteride 5 MG TAB PO SCH (09:07)
[2021-11-26] MEDS: Hydrochlorothiazide 25 MG TAB PO SCH (09:07)
[2021-11-26] MEDS: Amlodipine 10 MG TAB PO SCH (09:07)
[2021-11-26] MEDS: Lisinopril 10 MG TAB PO SCH (09:09)
[2021-11-26 11:03] VITALS: BP 134/83
[2021-11-26] MEDS: Insulin Regular 300 UNITS/3 ML VIAL SC PRN (11:43)
[2021-11-26] MEDS: Sodium Chloride 0.9% 1,000 ML IV SCH (13:16)
== END 2021-11-26 11:55 | disposition home or self-care (01) ==
LOC: SDC 06:22 → SURG A 12:56
PROVIDERS: ADMIT Neurological Surgery; ATTEND Neurological Surgery
PROC: 0PH304Z Insertion of Internal Fixation Device into Cervical Vertebra, Open Approach (ICD-10-PCS; principal; 2021-11-25)
DX: M47.22 Other spondylosis with radiculopathy, cervical region (principal); E11.9 Type 2 diabetes mellitus without complications; I10 Essential (primary) hypertension; N40.0 Benign prostatic hyperplasia without lower urinary tract symptoms; J45.20 Mild intermittent asthma, uncomplicated; K21.9 Gastro-esophageal reflux disease without esophagitis; Z79.84 Long term (current) use of oral hypoglycemic drugs; Z79.899 Other long term (current) drug therapy; Z98.1 Arthrodesis status
CPT/HCPCS: 22551; 22552; 22845; 76000; 80048 ×2; 82962 ×2; 85025 ×2; 97116; C1713 ×3; J2270 ×2; 36415; 36416; J0690; J1100; J1170; J1815; J2405; J2704; J3490; J7050

== ENCOUNTER 2021-12-09 09:06 | Outpatient (CLI) | payer MEDICAID, OTHER | END 2021-12-09 09:07 | disposition home or self-care (01) | LOC: TBSIIMAG 09:06 | PROVIDERS: ATTEND Neurological Surgery | DX: M54.12 Radiculopathy, cervical region (principal); Z98.890 Other specified postprocedural states | CPT/HCPCS: 72040 ==

== ENCOUNTER 2022-01-29 11:01 | Outpatient (CLI) | payer OTHER | END 2022-01-29 11:02 | disposition home or self-care (01) | LOC: TBSIIMAG 11:01 | PROVIDERS: ATTEND Neurological Surgery | DX: M47.812 Spondylosis without myelopathy or radiculopathy, cervical region (principal) | CPT/HCPCS: 72040 ==

== ENCOUNTER 2022-08-13 08:13 | Outpatient (CLI) | payer OTHER ==
[2022-08-13 09:20] LABS: Hemoglobin 14.1 g/dL (13.5-17.5); Mean Corpuscular HGB CONC 32.8 g/dL (32.0-36.0); Mean Corpuscular Hemoglobin 28.8 pg (27.0-33.0); Mean Corpuscular Volume 87.9 fl (81.2-95.1); Mean Platelet Volume 9.5 fl (7.4-10.4); Platelet Count 382 10x3/uL (150-450); RBC Distribution Width 12.8 % (11.5-14.5); Red Blood Cell (RBC) Count 4.89 10x6/uL (4.32-5.72); White Blood Cell (WBC) Count 7.1 10x3/uL (3.5-10.5)
[2022-08-13 09:36] LABS: Anion Gap 17 mmol/L (10-20); BUN (Urea Nitrogen) 18 mg/dL (8.4-25.7); Calc. Creatinine Clearance 0 mL/min (70-130); Calcium 9.3 mg/dL (7.8-10.44); Carbon Dioxide 24 mmol/L (22-29); Chloride 102 mmol/L (98-107); Estimated GFR 71; Glucose 162 mg/dL (70-105); Potassium 3.9 mmol/L (3.5-5.1); Sodium 139 mmol/L (136-145)
== END 2022-08-13 08:14 | disposition home or self-care (01) ==
LOC: LABBT 08:13
PROVIDERS: ATTEND Neurological Surgery
DX: Z01.812 Encounter for preprocedural laboratory examination (principal); M48.061 Spinal stenosis, lumbar region without neurogenic claudication
CPT/HCPCS: 80048; 85027; 93005; 93010

== ENCOUNTER 2022-09-04 11:08 | Outpatient (CLI) | payer OTHER | END 2022-09-04 11:09 | disposition home or self-care (01) | LOC: RAD 11:08 | PROVIDERS: ATTEND Neurological Surgery | DX: M48.061 Spinal stenosis, lumbar region without neurogenic claudication (principal); Z98.1 Arthrodesis status | CPT/HCPCS: 72100 ==

== ENCOUNTER 2022-09-23 06:48 | Inpatient (IN) | payer OTHER ==
[2022-09-19 14:54] VITALS: BMI 36.9
[2022-09-23] MEDS ORDERED: Bacitracin Zinc Ointment 30 gm TUBE ONE (07:47)
[2022-09-23] MEDS ORDERED: Thrombin 5000 UNITS/5 ML VIAL ONE (07:47)
[2022-09-23] MEDS ORDERED: Bupivacaine PF 0.5% 30 ML VIAL ONE ×2 (07:47→09:18)
[2022-09-23] MEDS ORDERED: Sodium Chloride 0.9% 100 ML ONE (08:25)
[2022-09-23] MEDS ORDERED: CEFAZOLIN 2 GM VIAL ONE (08:25)
[2022-09-23] MEDS ORDERED: Fentanyl 250 MCG/5 ML VIAL ONE (08:34)
[2022-09-23] MEDS ORDERED: Ondansetron PF 4 MG/2 ML Vial ONE (08:47)
[2022-09-23] MEDS ORDERED: PROPOFOL 200 MG/20 ML VIAL ONE (08:47)
[2022-09-23] MEDS ORDERED: Labetalol HCl 100 MG/20 ML VIAL ONE ×2 (08:47→16:23)
[2022-09-23] MEDS ORDERED: Lidocaine 1% PF 5 ML VIAL ONE (08:47)
[2022-09-23] MEDS ORDERED: Iopamidol-370 76% 500 ML MDV (1 ML CHARGE) ONE (09:39)
[2022-09-23] MEDS ORDERED: HYDROmorphone 2 MG/ML VIAL ONE (09:56)
[2022-09-23] MEDS ORDERED: Promethazine HCl 25 MG/ML VIAL IM PRN (13:39)
[2022-09-23] MEDS ORDERED: HYDROmorphone 2 MG/ML VIAL SLOW IVP PRN (13:39)
[2022-09-23] MEDS ORDERED: Ondansetron HCl/PF 4 MG/2 ML Vial IVP PRN (13:39)
[2022-09-23] MEDS ORDERED: traMADol HCl 50 MG TAB PO PRN (13:43)
[2022-09-23] MEDS ORDERED: Acetaminophen 325 MG TAB PO PRN (13:43)
[2022-09-23] MEDS ORDERED: fentaNYL 50 mcg/mL 1 mL Vial SLOW IVP PRN (13:43)
[2022-09-23] MEDS ORDERED: Acetaminophen/Codeine 30-300mg Tablet PO PRN (13:43)
[2022-09-23] MEDS ORDERED: TETANUS, DIPHTHERIA TOX,ADULT (TDVAX) 0.5 ML VIAL IM ONE (13:43)
[2022-09-23] MEDS ORDERED: Meperidine HCl/PF 25 MG/ML VIAL IM PRN (13:48)
[2022-09-23] MEDS ORDERED: Ketorolac Tromethamine 30 MG/ML VIAL IVP PRN (13:48)
[2022-09-23] MEDS ORDERED: ANTIBIOTICS IVPB PRN (13:55)
[2022-09-23] MEDS ORDERED: Cyclobenzaprine 10 MG TAB PO PRN (13:59)
[2022-09-23] MEDS ORDERED: fentaNYL 50 mcg/mL 1 mL Vial ONE ×3 (14:19→14:56)
[2022-09-23] MEDS ORDERED: Amlodipine 10 MG TAB PO SCH (14:30)
[2022-09-23] MEDS ORDERED: Ipratropium/Albuterol 3 ML NEB ONE (14:40)
[2022-09-23] MEDS ORDERED: HYDROmorphone 0.5 MG/0.5 ML SYRINGE ONE (15:14)
[2022-09-23] MEDS ORDERED: fentaNYL PF 100 MCG/2 ML SYRINGE ONE (15:21)
[2022-09-23] MEDS ORDERED: Morphine 4 MG/ML VIAL ONE (16:13)
[2022-09-23] MEDS ORDERED: Dextrose 50% Abboject 50 ML SYRINGE SLOW IVP PRN (17:49)
[2022-09-23] MEDS ORDERED: Glucagon 1 MG/ML KIT IM PRN (17:49)
[2022-09-23] MEDS ORDERED: Dextrose 5% in Water 1,000 ML IV PRN (17:49)
[2022-09-23] MEDS: metFORMIN 500 MG TAB PO SCH (18:26)
[2022-09-23] MEDS ORDERED: VANCOMYCIN 2 GRAM/500 ML BAG 2 GM in Premix Bag 1 BAG IVPB SCH (18:30)
[2022-09-23] MEDS ORDERED: Ipratropium/Albuterol 3 ML NEB NEB SCH (19:00)
[2022-09-23] MEDS: Morphine 4 MG/ML VIAL SLOW IVP PRN (19:11)
[2022-09-23] MEDS ORDERED: Furosemide 20 MG/2 ML VIAL SLOW IVP SCH (20:00)
[2022-09-23] MEDS: Gabapentin 300 MG CAP PO SCH (20:55)
[2022-09-23] MEDS: Atorvastatin Calcium 20 MG TAB PO SCH (20:55)
[2022-09-23] MEDS: HYDROcodone/Acetaminophen 5/325 mg Tablet PO PRN (20:56)
[2022-09-23] MEDS: Aspirin 81 mg Enteric Coated Tablet PO SCH (20:59)
[2022-09-23] MEDS: Cefepime 1 GM in Sodium Chloride 0.9% 100 ML IVPB SCH (23:05)
[2022-09-23] MEDS: methylPREDNISolone Sod Succ 40 MG VIAL IVP SCH (23:06)
[2022-09-23] MEDS: Melatonin 3 MG TAB PO PRN (23:06)
[2022-09-24] MEDS: Vancomycin 1.5 GRAM/300 ML BAG 1.5 GM in Premix Bag 1 BAG IVPB SCH ×4 (04:51→21:47)
[2022-09-24] MEDS: HYDROcodone/Acetaminophen 5/325 mg Tablet PO PRN ×3 (05:05→16:31)
[2022-09-24] MEDS: Ipratropium/Albuterol 3 ML NEB IPPB SCH ×4 (05:43→10:40)
[2022-09-24] MEDS: Mometasone 200 MCG/Formoterol 5 MCG 120 PUFF INHALER INH SCH ×3 (05:44→18:56)
[2022-09-24] MEDS: methylPREDNISolone Sod Succ 40 MG VIAL IVP SCH ×2 (05:51→14:27)
[2022-09-24] MEDS: HumaLOG 300 UNITS/3 ML VIAL SC PRN ×2 (05:52→22:00)
[2022-09-24] MEDS: Gabapentin 300 MG CAP PO SCH ×2 (08:38→21:48)
[2022-09-24] MEDS: metFORMIN 500 MG TAB PO SCH ×2 (08:39→16:32)
[2022-09-24] MEDS: Hydrochlorothiazide 25 MG TAB PO SCH (08:39)
[2022-09-24] MEDS: Cefepime 1 GM in Sodium Chloride 0.9% 100 ML IVPB SCH ×2 (08:40→21:49)
[2022-09-24] MEDS: Amlodipine 10 MG TAB PO SCH (08:40)
[2022-09-24] MEDS: Lisinopril 10 MG TAB PO SCH (08:40)
[2022-09-24] MEDS: Finasteride 5 MG TAB PO SCH (08:40)
[2022-09-24] MEDS: Aspirin 81 mg Enteric Coated Tablet PO SCH ×2 (08:40→21:49)
[2022-09-24 09:29] LABS: #Monocytes 0.2 thou/uL (0.11-0.59); #Neutrophils 7.3 thou/uL (1.40-6.50); %Basophils 0.1 % (0.0-1.0); %Eosinophils 0.1 % (0.0-10.0); %Lymphocytes 10.4 % (21.0-51.0); %Monocytes 2.1 % (0.0-10.0); %Neutrophils 87.1 % (42.0-75.0); Hemoglobin 12.9 g/dL (14.0-18.0); Mean Corpuscular HGB CONC 33.3 g/dL (32.0-36.0); Mean Corpuscular Hemoglobin 29.1 pg (27.0-31.0); Mean Corpuscular Volume 87.2 fl (78.0-98.0); Mean Platelet Volume 9.4 fL (7.4-10.4); Platelet Count 341 10x3/uL (130-400); RBC Distribution Width 13.1 % (11.5-14.5); Red Blood Cell (RBC) Count 4.44 mill/uL (4.70-6.10); White Blood Cell (WBC) Count 8.4 10x3/uL (4.8-10.8)
[2022-09-24 09:52] LABS: ALT (SGPT) 20 U/L (8-55); AST (SGOT) 26 U/L (5-34); Albumin 4.2 g/dL (3.5-5.0); Alkaline Phosphatase 120 U/L (40-110); Anion Gap 16 mmol/L (10-20); BUN (Urea Nitrogen) 13 mg/dL (8.4-25.7); Bilirubin, Total 1.1 mg/dL (0.2-1.2); Calc. Creatinine Clearance 135 mL/min (70-130); Calcium 8.9 mg/dL (7.8-10.44); Carbon Dioxide 22 mmol/L (22-29); Chloride 102 mmol/L (98-107); Estimated GFR 85; Globulin 3.1 g/dL (2.4-3.5); Glucose 231 mg/dL (70-105); Potassium 4.1 mmol/L (3.5-5.1); Protein, Total 7.3 g/dL (6.0-8.3); Sodium 136 mmol/L (136-145)
[2022-09-24] MEDS: Ipratropium/Albuterol 3 ML NEB NEB SCH ×2 (13:37→18:54)
[2022-09-24] MEDS: Atorvastatin Calcium 20 MG TAB PO SCH (21:49)
[2022-09-24] MEDS: Morphine 4 MG/ML VIAL SLOW IVP PRN (22:00)
[2022-09-25] MEDS: Ipratropium/Albuterol 3 ML NEB NEB SCH ×4 (01:55→18:34)
[2022-09-25] MEDS: Mometasone 200 MCG/Formoterol 5 MCG 120 PUFF INHALER INH SCH ×2 (06:13→18:37)
[2022-09-25 06:24] LABS: %Basophils 0.1 % (0.0-1.0); %Eosinophils 0.9 % (0.0-10.0); %Lymphocytes 15.6 % (21.0-51.0); %Monocytes 6.3 % (0.0-10.0); %Neutrophils 76.7 % (42.0-75.0); Hemoglobin 11.2 g/dL (14.0-18.0); Mean Corpuscular HGB CONC 33.5 g/dL (32.0-36.0); Mean Corpuscular Hemoglobin 29.5 pg (27.0-31.0); Mean Corpuscular Volume 87.9 fl (78.0-98.0); Mean Platelet Volume 9.5 fL (7.4-10.4); Platelet Count 340 10x3/uL (130-400); RBC Distribution Width 13.3 % (11.5-14.5); White Blood Cell (WBC) Count 13.8 10x3/uL (4.8-10.8)
[2022-09-25 06:25] LABS: #Eosinphils 0.1 thou/uL (0.0-0.7); #Monocytes 0.9 thou/uL (0.11-0.59); #Neutrophils 10.6 thou/uL (1.40-6.50)
[2022-09-25 06:57] LABS: Anion Gap 14 mmol/L (10-20); Carbon Dioxide 27 mmol/L (22-29); Chloride 100 mmol/L (98-107); Potassium 3.6 mmol/L (3.5-5.1); Sodium 137 mmol/L (136-145)
[2022-09-25 06:58] LABS: Albumin 3.9 g/dL (3.5-5.0); BUN (Urea Nitrogen) 15 mg/dL (8.4-25.7); Bilirubin, Total 0.5 mg/dL (0.2-1.2); Calc. Creatinine Clearance 140 mL/min (70-130); Calcium 8.7 mg/dL (7.8-10.44); Estimated GFR 89; Glucose 175 mg/dL (70-105); Protein, Total 6.9 g/dL (6.0-8.3)
[2022-09-25 06:59] LABS: ALT (SGPT) 18 U/L (8-55); AST (SGOT) 20 U/L (5-34); Alkaline Phosphatase 111 U/L (40-110)
[2022-09-25 08:06] LABS: Vancomycin, Trough 16.3 ug/mL
[2022-09-25] MEDS: Gabapentin 300 MG CAP PO SCH ×2 (08:44→21:11)
[2022-09-25] MEDS: Morphine 4 MG/ML VIAL SLOW IVP PRN (08:44)
[2022-09-25] MEDS: Aspirin 81 mg Enteric Coated Tablet PO SCH ×2 (08:45→21:10)
[2022-09-25] MEDS: Amoxicillin/Potassium Clav 875 MG TAB PO SCH ×2 (08:45→21:11)
[2022-09-25] MEDS: Lisinopril 10 MG TAB PO SCH (08:45)
[2022-09-25] MEDS: Finasteride 5 MG TAB PO SCH (08:45)
[2022-09-25] MEDS: metFORMIN 500 MG TAB PO SCH ×2 (08:45→16:53)
[2022-09-25] MEDS: Amlodipine 10 MG TAB PO SCH (08:45)
[2022-09-25] MEDS: Hydrochlorothiazide 25 MG TAB PO SCH (08:45)
[2022-09-25] MEDS: Atorvastatin Calcium 20 MG TAB PO SCH (21:10)
[2022-09-25] MEDS: Melatonin 3 MG TAB PO PRN (21:20)
[2022-09-26] MEDS: Ipratropium/Albuterol 3 ML NEB NEB SCH ×2 (00:19→07:53)
[2022-09-26] MEDS: Mometasone 200 MCG/Formoterol 5 MCG 120 PUFF INHALER INH SCH (07:51)
[2022-09-26 08:10] VITALS: TEMP 98
[2022-09-26] MEDS: metFORMIN 500 MG TAB PO SCH (08:19)
[2022-09-26] MEDS: Finasteride 5 MG TAB PO SCH (08:20)
[2022-09-26] MEDS: Gabapentin 300 MG CAP PO SCH (08:20)
[2022-09-26] MEDS: Amoxicillin/Potassium Clav 875 MG TAB PO SCH (08:20)
[2022-09-26] MEDS: Amlodipine 10 MG TAB PO SCH (08:20)
[2022-09-26] MEDS: Aspirin 81 mg Enteric Coated Tablet PO SCH (08:20)
[2022-09-26] MEDS: Lisinopril 10 MG TAB PO SCH (08:20)
[2022-09-26 08:21] VITALS: BP 143/90
[2022-09-26] MEDS: Hydrochlorothiazide 25 MG TAB PO SCH (08:24)
[2022-09-26] MEDS: HYDROcodone/Acetaminophen 5/325 mg Tablet PO PRN (08:24)
[2022-09-26] MEDS ORDERED: Ipratropium/Albuterol 3 ML NEB NEB SCH (12:30)
== END 2022-09-26 12:22 | disposition home or self-care (01) | DRG 40 ==
LOC: SDC 06:48 → T4-B 13:49
PROVIDERS: ADMIT Orthopaedic Surgery Hand Surgery; ATTEND Internal Medicine
PROC: 01N50ZZ Release Median Nerve, Open Approach (ICD-10-PCS; principal; 2022-09-23)
PROC: 01N40ZZ Release Ulnar Nerve, Open Approach (ICD-10-PCS; 2022-09-23)
PROC: 01N60ZZ Release Radial Nerve, Open Approach (ICD-10-PCS; 2022-09-23)
DX: G56.02 Carpal tunnel syndrome, left upper limb (principal); J69.0 Pneumonitis due to inhalation of food and vomit; J96.01 Acute respiratory failure with hypoxia; G56.12 Other lesions of median nerve, left upper limb; G56.22 Lesion of ulnar nerve, left upper limb; I10 Essential (primary) hypertension; E11.9 Type 2 diabetes mellitus without complications; M48.02 Spinal stenosis, cervical region; M48.061 Spinal stenosis, lumbar region without neurogenic claudication; E78.5 Hyperlipidemia, unspecified; E66.9 Obesity, unspecified; Z60.2 Problems related to living alone; N40.0 Benign prostatic hyperplasia without lower urinary tract symptoms; Z90.49 Acquired absence of other specified parts of digestive tract; Z98.1 Arthrodesis status; Z86.16 Personal history of COVID-19; Z83.3 Family history of diabetes mellitus; Z82.49 Family history of ischemic heart disease and other diseases of the circulatory system; Z79.899 Other long term (current) drug therapy; Z79.84 Long term (current) use of oral hypoglycemic drugs; Z68.37 Body mass index [BMI] 37.0-37.9, adult
CPT/HCPCS: 36415; 36416; 71045; 71275; 80053; 80202; 83880; 85025; 85379; 87081; 94640; J0692; J1170; J1815; J1940; J2270; J2405; J2704; J2920; J3010; J3370; J3490; J7620; Q9967; S0020

== ENCOUNTER 2023-04-24 12:18 | Outpatient (CLI) | payer OTHER | END 2023-04-24 12:19 | disposition home or self-care (01) | LOC: RAD 12:18 | PROVIDERS: ATTEND Neurological Surgery | DX: M51.36 Other intervertebral disc degeneration, lumbar region (principal); M47.816 Spondylosis without myelopathy or radiculopathy, lumbar region; Z98.1 Arthrodesis status | CPT/HCPCS: 72040; 72100 ==

== ENCOUNTER 2023-07-07 08:07 | Outpatient (CLI) | payer OTHER ==
[2023-07-07 10:57] LABS: #Basophils 0.07 10x3/uL (0.0-0.2); #Eosinphils 0.34 10x3/uL (0.0-0.5); #Monocytes 0.42 10x3/uL (0.0-1.1); #Neutrophils 3.07 10x3/uL (1.5-8.4); %Basophils 1.2 % (0.0-2.0); %Eosinophils 5.7 % (0.0-6.0); %Lymphocytes 34.7 % (18.0-47.0); %Neutrophils 51.4 % (40.0-75.0); Hematocrit 39.9 % (38.8-50.0); Hemoglobin 13.8 g/dL (13.5-17.5); Mean Corpuscular HGB CONC 34.6 g/dL (32.0-36.0); Mean Corpuscular Hemoglobin 30.1 pg (27.0-33.0); Mean Corpuscular Volume 87.1 fl (81.2-95.1); Platelet Count 360 10x3/uL (150-450); RBC Distribution Width 13.1 % (11.5-14.5); Red Blood Cell (RBC) Count 4.58 10x6/uL (4.32-5.72)
[2023-07-07 11:34] LABS: Anion Gap 13 mmol/L (10-20); BUN (Urea Nitrogen) 15 mg/dL (8.4-25.7); Calc. Creatinine Clearance 0 mL/min (70-130); Calcium 9.3 mg/dL (7.8-10.44); Carbon Dioxide 25 mmol/L (22-29); Chloride 103 mmol/L (98-107); Estimated GFR 80; Glucose 185 mg/dL (70-105); Potassium 4.1 mmol/L (3.5-5.1); Sodium 137 mmol/L (136-145)
== END 2023-07-07 08:08 | disposition home or self-care (01) ==
LOC: LABBT 08:07
PROVIDERS: ATTEND Orthopaedic Surgery Hand Surgery
DX: Z01.818 Encounter for other preprocedural examination (principal); G56.22 Lesion of ulnar nerve, left upper limb
CPT/HCPCS: 80048; 85025; 93005; 93010

== ENCOUNTER 2023-07-10 08:04 | Observation (INO) | payer OTHER ==
[2023-07-07 08:43] VITALS: BMI 35.1
[2023-07-10] MEDS ORDERED: PROPOFOL 40 ML ONE (10:38)
[2023-07-10] MEDS ORDERED: Lidocaine 2% PF 5 ML VIAL ONE (10:40)
[2023-07-10] MEDS ORDERED: Sodium Chloride 0.9% 100 ML ONE (11:06)
[2023-07-10] MEDS ORDERED: CEFAZOLIN 2 GM VIAL ONE (11:06)
[2023-07-10] MEDS ORDERED: Bacitracin Zinc Ointment 30 gm TUBE ONE (11:12)
[2023-07-10] MEDS ORDERED: Bupivacaine PF 0.5% 30 ML VIAL ONE (11:12)
[2023-07-10] MEDS ORDERED: Fentanyl 250 MCG/5 ML VIAL ONE (11:22)
[2023-07-10] MEDS ORDERED: Dexamethasone 20 MG/5 ML VIAL ONE (11:48)
[2023-07-10] MEDS ORDERED: Glycopyrrolate 0.2 MG/ML 5 ML SYRINGE ONE (12:24)
[2023-07-10] MEDS ORDERED: TETANUS, DIPHTHERIA TOX,ADULT (TDVAX) 0.5 ML VIAL IM ONE (14:41)
[2023-07-10] MEDS ORDERED: Ondansetron PF 4 MG/2 ML Vial IVP PRN (14:41)
[2023-07-10] MEDS ORDERED: Acetaminophen 325 MG TAB PO PRN (14:41)
[2023-07-10] MEDS ORDERED: Promethazine HCl 25 MG/ML VIAL IM PRN (14:41)
[2023-07-10] MEDS ORDERED: fentaNYL 50 mcg/mL 1 mL Vial SLOW IVP PRN (14:41)
[2023-07-10] MEDS ORDERED: traMADol HCl 50 MG TAB PO PRN (14:41)
[2023-07-10] MEDS ORDERED: Meperidine HCl/PF 25 MG (1 mL) VIAL IM PRN (14:44)
[2023-07-10] MEDS ORDERED: Communication Order-Pharmacy FS SCH (14:45)
[2023-07-10] MEDS ORDERED: fentaNYL 50 mcg/mL 1 mL Vial ONE ×2 (14:59→15:10)
[2023-07-10] MEDS: Morphine 4 MG/ML VIAL SLOW IVP PRN (17:15)
[2023-07-10] MEDS: CEFAZOLIN 1 GM in Sodium Chloride 0.9% 100 ML IVPB SCH (19:36)
[2023-07-10] MEDS: HYDROcodone/Acetaminophen 5/325 mg Tablet PO PRN (19:36)
[2023-07-10] MEDS: Aspirin 81 mg Enteric Coated Tablet PO SCH (19:36)
[2023-07-11 06:01] VITALS: BP 135/78; TEMP 97.7
== END 2023-07-11 09:33 | disposition home or self-care (01) ==
LOC: SDC 08:04 → SURG A 15:52
PROVIDERS: ADMIT Orthopaedic Surgery Hand Surgery; ATTEND Orthopaedic Surgery Hand Surgery
PROC: 0LN80ZZ Release Left Hand Tendon, Open Approach (ICD-10-PCS; principal; 2023-07-10)
PROC: 01N40ZZ Release Ulnar Nerve, Open Approach (ICD-10-PCS; 2023-07-10)
PROC: 01N50ZZ Release Median Nerve, Open Approach (ICD-10-PCS; 2023-07-10)
DX: M65.342 Trigger finger, left ring finger (principal); G56.22 Lesion of ulnar nerve, left upper limb; G58.7 Mononeuritis multiplex; G90.50 Complex regional pain syndrome I, unspecified; T78.40XD Allergy, unspecified, subsequent encounter
CPT/HCPCS: 26055; 64719; 64721; J3010; J0665; J0690; J1100; J2001; J2270; J2704; J3490

== ENCOUNTER 2024-09-22 17:39 | Inpatient (IN) | payer OTHER ==
[2024-09-22] MEDS ORDERED: Ibuprofen 800 MG TAB ONE (18:05)
[2024-09-22 18:59] LABS: Actual Bicarbonate (HCO3v) 20.9 mEq/L (22-28); Base Excess -2.3 mEq/L (-2.0 to +3.0); Calcium, Ionized (venous) 1.12 mmol/L (1.16-1.32); Chloride (VBG) 106 mmol/L (98-106); Hematocrit-VBG 42 % (42.0-52.0); Hemoglobin (Hb) 14.4 g/dL (13.1-17.2); Potassium (VBG) 3.90 mmol/L (3.70-5.30); Sodium 144 mmol/L (133-146)
[2024-09-22 19:01] LABS: #Basophils 0.08 10x3/uL (0.0-0.2); #Eosinophils Less than 0.03 10x3/uL (0.0-0.7); #Monocytes 0.33 10x3/uL (0.11-0.59); #Neutrophils 6.42 10x3/uL (1.40-6.50); %Basophils 1.0 % (0.0-1.0); %Eosinophils 0.2 % (0.0-10.0); %Lymphocytes 16.6 % (21.0-51.0); %Monocytes 4.0 % (0.0-10.0); %Neutrophils 78.0 % (42.0-75.0); Hematocrit 39.1 % (42.0-52.0); Hemoglobin 13.1 g/dL (14.0-18.0); Mean Corpuscular Hemoglobin 28.7 pg (27.0-31.0); Mean Corpuscular Volume 85.6 fL (78.0-98.0); Platelet Count 412 10x3/uL (130-400); Red Blood Cell (RBC) Count 4.57 mill/uL (4.70-6.10); White Blood Cell (WBC) Count 8.24 10x3/uL (4.8-10.8)
[2024-09-22 19:27] LABS: ALT (SGPT) 8 U/L (Less than 45); AST (SGOT) 15 U/L (11-34); Albumin 4.5 g/dL (3.1-4.5); Alkaline Phosphatase 126 U/L (40-110); Anion Gap 21 mmol/L (10-20); BUN (Urea Nitrogen) 25 mg/dL (8.4-25.7); Bilirubin, Total 0.8 mg/dL (0.3-1.2); Calc. Creatinine Clearance 0 mL/min (70-130); Calcium 9.6 mg/dL (7.8-10.44); Carbon Dioxide 20 mmol/L (22-29); Chloride 108 mmol/L (98-107); Globulin 4.0 g/dL (2.4-3.5); Glucose 103 mg/dL (70-105); Potassium 3.8 mmol/L (3.5-5.1); Sodium 145 mmol/L (136-145)
[2024-09-22 19:37] LABS: Bacteria/HPF None Seen HPF (None Seen); CAUTI Indications for Culture Dysuria,urgency,freq; Glucose, Urine (Dipstick) Normal (Negative); Leukocyte 500 Leu/uL (Negative); Protein, Urine (Dipstick) 100 mg/dL (Neg-Trace); RBC/HPF Greater than 50 HPF (0-3); Specific Gravity, Urine 1.039 (1.002-1.036); WBC/HPF Greater than 50 HPF (0-3)
[2024-09-22 19:38] LABS: Urine Culture Reflex Yes Yes
[2024-09-22] MEDS ORDERED: Ondansetron PF 4 MG/2 ML Vial IVP PRN ×2 (21:15→23:04)
[2024-09-22] MEDS ORDERED: Acetaminophen 325 MG TAB PO PRN (21:15)
[2024-09-22 22:00] VITALS: BMI 30.9
[2024-09-22] MEDS ORDERED: Calcium Carbonate 500 MG ChewTAB PO PRN (23:04)
[2024-09-22] MEDS ORDERED: Electrolyte Replacement Protocol 1 EACH FS SCH (23:15)
[2024-09-23 05:35] LABS: #Basophils 0.06 10x3/uL (0.0-0.2); #Eosinophils 0.09 10x3/uL (0.0-0.7); #Monocytes 0.56 10x3/uL (0.11-0.59); #Neutrophils 5.57 10x3/uL (1.40-6.50); %Basophils 0.7 % (0.0-1.0); %Eosinophils 1.0 % (0.0-10.0); %Lymphocytes 27.1 % (21.0-51.0); %Monocytes 6.5 % (0.0-10.0); %Neutrophils 64.4 % (42.0-75.0); Hematocrit 33.1 % (42.0-52.0); Hemoglobin 11.1 g/dL (14.0-18.0); Mean Corpuscular Hemoglobin 28.8 pg (27.0-31.0); Mean Corpuscular Volume 85.8 fL (78.0-98.0); Platelet Count 376 10x3/uL (130-400); Red Blood Cell (RBC) Count 3.86 mill/uL (4.70-6.10); White Blood Cell (WBC) Count 8.65 10x3/uL (4.8-10.8)
[2024-09-23 05:57] LABS: ALT (SGPT) 7 U/L (Less than 45); AST (SGOT) 12 U/L (11-34); Albumin 3.7 g/dL (3.1-4.5); Alkaline Phosphatase 106 U/L (40-110); Anion Gap 14 mmol/L (10-20); BUN (Urea Nitrogen) 23 mg/dL (8.4-25.7); Bilirubin, Total 0.7 mg/dL (0.3-1.2); Calc. Creatinine Clearance 101 mL/min (70-130); Calcium 8.6 mg/dL (7.8-10.44); Carbon Dioxide 24 mmol/L (22-29); Chloride 109 mmol/L (98-107); Globulin 3.2 g/dL (2.4-3.5); Glucose 94 mg/dL (70-105); Potassium 3.5 mmol/L (3.5-5.1); Sodium 143 mmol/L (136-145)
[2024-09-23] MEDS: Lisinopril 20 MG TAB PO SCH (08:53)
[2024-09-23] MEDS: metFORMIN 500 MG TAB PO SCH (08:53)
[2024-09-23] MEDS: Hyoscyamine SL 0.125 MG TAB PO SCH (19:37)
[2024-09-23] MEDS: Ketorolac Tromethamine 30 MG (1 mL) VIAL IVP SCH (21:54)
[2024-09-24] MEDS ORDERED: Non-Formulary Item 1 EACH (Omeprazole [Omeprazole] 40 MG Capsule.Dr) PO SCH (09:00)
[2024-09-24] MEDS: Pantoprazole 40 MG DR.TAB PO SCH (09:07)
[2024-09-24] MEDS: Lisinopril 20 MG TAB PO SCH (09:08)
[2024-09-24] MEDS: Oxybutynin 5 MG TAB PO SCH (09:08)
[2024-09-24] MEDS: HYDROcodone/Acetaminophen 5/325 mg Tablet PO PRN (17:32)
[2024-09-25] MEDS: Oxybutynin 5 MG TAB PO SCH (08:41)
[2024-09-26] MEDS: Multivit, Therapeutic 1 TAB PO SCH (20:23)
[2024-09-27 06:24] LABS: Anion Gap 13 mmol/L (10-20); BUN (Urea Nitrogen) 15 mg/dL (8.4-25.7); Calc. Creatinine Clearance 114 mL/min (70-130); Calcium 8.8 mg/dL (7.8-10.44); Carbon Dioxide 24 mmol/L (22-29); Chloride 107 mmol/L (98-107); Glucose 100 mg/dL (70-105); Magnesium 1.6 mg/dL (1.6-2.6); Potassium 3.8 mmol/L (3.5-5.1); Sodium 140 mmol/L (136-145)
[2024-09-27 07:57] VITALS: BP 137/92; TEMP 98.2
[2024-09-27 08:00] LABS: #Basophils 0.09 10x3/uL (0.0-0.2); #Eosinophils 0.69 10x3/uL (0.0-0.7); #Monocytes 0.39 10x3/uL (0.11-0.59); #Neutrophils 2.81 10x3/uL (1.40-6.50); %Basophils 1.4 % (0.0-1.0); %Eosinophils 11.1 % (0.0-10.0); %Lymphocytes 35.7 % (21.0-51.0); %Monocytes 6.3 % (0.0-10.0); %Neutrophils 45.2 % (42.0-75.0); Hematocrit 35.8 % (42.0-52.0); Hemoglobin 12.3 g/dL (14.0-18.0); Mean Corpuscular Hemoglobin 29.2 pg (27.0-31.0); Mean Corpuscular Volume 85.0 fL (78.0-98.0); Platelet Count 417 10x3/uL (130-400); Red Blood Cell (RBC) Count 4.21 mill/uL (4.70-6.10); White Blood Cell (WBC) Count 6.22 10x3/uL (4.8-10.8)
[2024-09-27] MEDS: Magnesium 2 GM/50 ML(in water) 2 GM in Premix 1 BAG IVPB SCH (11:44)
[2024-09-27] MEDS ORDERED: Senokot S 8.6-50 MG TAB PO SCH (21:00)
== END 2024-09-27 18:06 | disposition home or self-care (01) | DRG 690 ==
LOC: ERS 17:39 → T4-B 21:04
PROVIDERS: ADMIT Student in an Organized Health Care Education/Training Program; ATTEND Internal Medicine
DX: N39.0 Urinary tract infection, site not specified (principal); Z16.20 Resistance to unspecified antibiotic; N17.9 Acute kidney failure, unspecified; E87.20 Acidosis, unspecified; N40.0 Benign prostatic hyperplasia without lower urinary tract symptoms; E78.5 Hyperlipidemia, unspecified; E11.9 Type 2 diabetes mellitus without complications; B96.1 Klebsiella pneumoniae [K. pneumoniae] as the cause of diseases classified elsewhere; K21.9 Gastro-esophageal reflux disease without esophagitis; M48.061 Spinal stenosis, lumbar region without neurogenic claudication; N32.89 Other specified disorders of bladder; Z98.1 Arthrodesis status; Z90.49 Acquired absence of other specified parts of digestive tract; Z98.890 Other specified postprocedural states; Z12.5 Encounter for screening for malignant neoplasm of prostate; N40.1 Benign prostatic hyperplasia with lower urinary tract symptoms
CPT/HCPCS: 36415; 71045; 80048; 80053; 81001; 82805; 83605; 83735; 85025; 87040; 87077; 87086; 87186; 94760; 96365; 96375; J1885; J2183; J2185; J2270; J3475

== ENCOUNTER 2024-10-19 16:31 | Emergency (ER) | payer OTHER ==
[2024-10-19] MEDS ORDERED: Ketorolac Tromethamine 30 MG (1 mL) VIAL ONE ×2 (19:16→19:18)
[2024-10-19] MEDS ORDERED: Orphenadrine Citrate 100 MG ER.TAB ONE (19:17)
[2024-10-19] MEDS ORDERED: HYDROcodone/Acetaminophen 5/325 mg Tablet ONE (19:17)
[2024-10-19 19:20] LABS: #Basophils 0.08 10x3/uL (0.0-0.2); #Eosinophils 0.30 10x3/uL (0.0-0.7); #Monocytes 0.38 10x3/uL (0.11-0.59); #Neutrophils 2.47 10x3/uL (1.40-6.50); %Basophils 1.4 % (0.0-1.0); %Eosinophils 5.1 % (0.0-10.0); %Lymphocytes 44.6 % (21.0-51.0); %Monocytes 6.5 % (0.0-10.0); %Neutrophils 42.2 % (42.0-75.0); Hematocrit 39.5 % (42.0-52.0); Hemoglobin 12.9 g/dL (14.0-18.0); Mean Corpuscular Hemoglobin 28.5 pg (27.0-31.0); Mean Corpuscular Volume 87.4 fL (78.0-98.0); Platelet Count 334 10x3/uL (130-400); Red Blood Cell (RBC) Count 4.52 mill/uL (4.70-6.10); White Blood Cell (WBC) Count 5.85 10x3/uL (4.8-10.8)
[2024-10-19 19:38] LABS: ALT (SGPT) 8 U/L (Less than 45); AST (SGOT) 15 U/L (11-34); Albumin 4.1 g/dL (3.1-4.5); Alkaline Phosphatase 112 U/L (40-110); Anion Gap 13 mmol/L (10-20); BUN (Urea Nitrogen) 10 mg/dL (8.4-25.7); Bilirubin, Total 1.2 mg/dL (0.3-1.2); Calc. Creatinine Clearance 0 mL/min (70-130); Calcium 9.1 mg/dL (7.8-10.44); Carbon Dioxide 25 mmol/L (22-29); Chloride 108 mmol/L (98-107); Globulin 3.3 g/dL (2.4-3.5); Glucose 76 mg/dL (70-105); Potassium 3.7 mmol/L (3.5-5.1); Sodium 142 mmol/L (136-145)
[2024-10-19 19:41] LABS: Bacteria/HPF None Seen HPF (None Seen); CAUTI Indications for Culture Pelvic or flank pain; Glucose, Urine (Dipstick) Normal (Negative); Leukocyte 250 Leu/uL (Negative); Protein, Urine (Dipstick) 30 mg/dL (Neg-Trace); Specific Gravity, Urine 1.025 (1.002-1.036); WBC/HPF Greater than 50 HPF (0-3)
[2024-10-19 20:04] LABS: Urine Culture Reflex Yes Yes
== END 2024-10-19 20:36 | disposition home or self-care (01) ==
LOC: ERS 16:31
DX: M25.552 Pain in left hip (principal); N39.0 Urinary tract infection, site not specified; E11.9 Type 2 diabetes mellitus without complications; I10 Essential (primary) hypertension
CPT/HCPCS: 72192; 80053; 81001; 85025; 87086; J1885; 36415; 96372

== ENCOUNTER 2025-01-14 13:27 | Emergency (ER) | payer MEDICARE, OTHER ==
[2025-01-14] MEDS ORDERED: HYDROcodone/Acetaminophen 5/325 mg Tablet ONE (14:40)
[2025-01-14] MEDS ORDERED: Orphenadrine Citrate 100 MG ER.TAB ONE (14:40)
== END 2025-01-14 15:51 | disposition home or self-care (01) ==
LOC: ERS 13:27
DX: M25.551 Pain in right hip (principal); E78.5 Hyperlipidemia, unspecified; E11.9 Type 2 diabetes mellitus without complications; I10 Essential (primary) hypertension; J45.909 Unspecified asthma, uncomplicated; Z79.84 Long term (current) use of oral hypoglycemic drugs; Z79.899 Other long term (current) drug therapy; Z55.6 Problems related to health literacy
CPT/HCPCS: 72170; 96372; 99283